=== PATIENT | male | born 1950 | race Caucasian/White ===

== ENCOUNTER 2016-11-18 15:46 | Emergency (ER) | payer OTHER ==
[~2016-11-18] VITALS: Ht 188 cm; Wt 106.6 kg
[~2016-11-18 15:46] MED LIST: HYDR-971 PO; WARF10TA6 PO
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
--- NOTE | 2016-11-18 16:42 | EKG ---
[facility] [address] [place] [address] Test Date: 2016-11-18 Test Time: 16:38:31 Pat Name: XOCHITL GRIFFITH Department: Room: Gender: M Program Management Specialist: : 1950 Requested By: NEERU MON Order Number: [id number] Reading MD: Mae Mcmullen Measurements Intervals [place] Rate: 99 P: 31 IL: 146 QRS: -38 QRSD: 130 T: 16 QT: 386 QTc: 495 Interpretive Statements SINUS RHYTHM LEFT ANTERIOR FASCICULAR BLOCK RIGHT BUNDLE BRANCH BLOCK BIFASCICULAR BLOCK RVH WITH REPOLARIZATION ABNORMALITY Electronically Signed On 11-20-2016 12:51:42 CDT by Mae Mcmullen
[2016-11-18] MEDS ORDERED: IOHEXOL 300 MG/ML 75 ML VIAL IV ONE (16:45)
[2016-11-18] MEDS ORDERED: CONTRAST GIVEN MC PRN (17:00)
[2016-11-18 18:16] LABS: BASO % 1 % (0-3); EOS % 3 % (0-3); HEMATOCRIT 41.8 % (39.0-53.0); HEMOGLOBIN 14.6 g/dL (13.0-17.5); LYMPH % 29 % (24-48); MEAN CORPUSCULAR HEMOGLOBIN 32 pg (25-35); MEAN CORPUSCULAR HGB CONC 35 g/dL (31-37); MEAN CORPUSCULAR VOLUME 90 fL (79-100); MONO % 10 % (0-9); NEUT % 59 % (31-73); PLATELET COUNT 227 x10^3/uL (140-400); RED BLOOD COUNT 4.62 x10^6/uL (4.30-5.70); RED CELL DISTRIBUTION WIDTH 13.5 % (11.5-14.5); WHITE BLOOD COUNT 6.8 x10^3/uL (4.0-11.0)
[2016-11-18 18:37] LABS: CALCIUM 9.6 mg/dL (8.5-10.1); CREATININE 0.7 mg/dL (0.7-1.3); GFR 112.8; POTASSIUM 3.9 mmol/L (3.5-5.1)
[2016-11-18 18:44] LABS: DIRECT BILIRUBIN 0.1 mg/dL (0.0-0.2); TOTAL BILIRUBIN 0.3 mg/dL (0.2-1.0); TOTAL PROTEIN 7.3 g/dL (6.4-8.2)
[2016-11-18 18:59] LABS: CKMB MASS 2.7 ng/mL (0.0-3.6)
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
[2016-11-18 19:43] VITALS: BP 136/76
== END 2016-11-18 20:18 | disposition home or self-care (01) ==
LOC: ER 15:46
DX: R07.2 Precordial pain (principal); R00.0 Tachycardia, unspecified; Z86.718 Personal history of other venous thrombosis and embolism; Z79.01 Long term (current) use of anticoagulants; V43.52XA Car driver injured in collision with other type car in traffic accident, initial encounter; Y93.I9 Activity, other involving external motion; Y92.410 Unspecified street and highway as the place of occurrence of the external cause; Y99.8 Other external cause status
CPT/HCPCS: 36415; 71260; 74177; 80048; 80076; 82553; 83690; 84484; 85025; 93005; 99285; Q9967

== ENCOUNTER 2017-04-03 11:45 | Emergency (ER) | payer OTHER ==
[2017-04-03] MEDS: IPRATRPIUM/ALBUTEROL 0.5/2.5MG 3 ML NEBU. NEB ×2 (13:13→13:58)
[2017-04-03 13:36] LABS: ADD MAN DIFF? NO
[2017-04-03 13:40] LABS: BASO % 1 % (0-3); EOS # 0.3 x10^3/uL (0.0-0.7); EOS % 5 % (0-3); HEMATOCRIT 45.8 % (39.0-53.0); HEMOGLOBIN 15.4 g/dL (13.0-17.5); LYMPH # 1.9 x10^3/uL (1.0-4.8); LYMPH % 26 % (24-48); MEAN CORPUSCULAR HEMOGLOBIN 31 pg (25-35); MEAN CORPUSCULAR HGB CONC 34 g/dL (31-37); MEAN CORPUSCULAR VOLUME 92 fL (79-100); MONO # 0.8 x10^3/uL (0.0-1.1); MONO % 11 % (0-9); NEUT # 4.1 x10^3uL (1.8-7.7); NEUT % 58 % (31-73); PLATELET COUNT 226 x10^3/uL (140-400); RED BLOOD COUNT 4.99 x10^6/uL (4.30-5.70); RED CELL DISTRIBUTION WIDTH 13.6 % (11.5-14.5); WHITE BLOOD COUNT 7.2 x10^3/uL (4.0-11.0)
[2017-04-03 13:50] LABS: ANION GAP 11 (6-14); BLOOD UREA NITROGEN 16 mg/dL (8-26); CALCIUM 9.2 mg/dL (8.5-10.1); CARBON DIOXIDE 28 mmol/L (21-32); CHLORIDE 103 mmol/L (98-107); CREATININE 0.7 mg/dL (0.7-1.3); GFR 112.8; GLUCOSE 99 mg/dL (70-99); POTASSIUM 3.9 mmol/L (3.5-5.1); SODIUM 142 mmol/L (136-145)
[2017-04-03 13:56] LABS: ALBUMIN 3.9 g/dL (3.4-5.0); ALK PHOS 53 U/L (46-116); ALT (SGPT) 91 U/L (16-63); AST (SGOT) 47 U/L (15-37); DIRECT BILIRUBIN 0.2 mg/dL (0.0-0.2); LIPASE 63 U/L (73-393); MAGNESIUM 1.7 mg/dL (1.8-2.4); TOTAL BILIRUBIN 0.6 mg/dL (0.2-1.0); TOTAL PROTEIN 7.5 g/dL (6.4-8.2)
[2017-04-03 13:59] LABS: TROPONINI < 0.017 ng/mL (0.000-0.055)
[2017-04-03 14:05] LABS: CKMB INDEX 1.9 % (0-4); CKMB MASS 4.3 ng/mL (0.0-3.6); CREATINE KINASE 228 U/L (39-308)
[2017-04-03 14:05] LABS: NT-PRO BNP 10 pg/mL (0-124)
[2017-04-03 14:13] LABS: D-DIMER < 0.27 ug/mlFEU (0.00-0.50)
[2017-04-03] MEDS: AZITHRMYCN 500MG IVPB FOR OMNI 250 ML IV (14:19)
[2017-04-03] MEDS: methylPREDNISolone SOD SUCC PF 125 MG/2 ML VIAL. IV (14:19)
== END 2017-04-03 15:20 | disposition home or self-care (01) ==
LOC: ER 15:20
DX: J40 Bronchitis, not specified as acute or chronic (principal); Z86.718 Personal history of other venous thrombosis and embolism; Z86.711 Personal history of pulmonary embolism; Z95.828 Presence of other vascular implants and grafts; Z79.01 Long term (current) use of anticoagulants
CPT/HCPCS: 36415; 71046; 80048; 80076; 82553; 83690; 83735; 83880; 84484; 85025; 85379; 93005; 94640; 96365; 96375; 99285-25; J0456; J2930; J7620

== ENCOUNTER → 2018-07-03 | Outpatient (CLI) | payer OTHER, MEDICARE ==
[2017-04-03 12:35] VITALS: BP 154/84
[~2018-07-03] MED LIST changes: +ALBU2.5V8 INH; +AZIT250T6 PO; +HYDR-3164 PO; -HYDR-971 PO; +PRED50TA PO; +WARF10TA40 PO; -WARF10TA6 PO
--- NOTE | 2018-07-04 09:09 | KCIC ---
Maxillofacial CT scan without comparison for recurrent maxillary sinusitis, sinus infections, drainage, congestion, cough. TECHNIQUE: Contiguous helical 2 mm axial images are obtained through the maxilla facial bones. Sagittal and coronal reformations are evaluated. FINDINGS: There is a minimal mucosal thickening within the bilateral maxillary, frontal, and sphenoid sinuses, with moderate mucosal thickening throughout the ethmoid air cells. No air-fluid levels are identified to suggest acute sinusitis. No bony changes are seen. There is a letha bullosa on the right. The ostiomeatal complexes bilaterally are obstructed by mucosal thickening at the infundibula. At the right maxillary sinus, there is a small patent medial wall defect seen best on the coronal series image 23, which may reflect a small antrostomy defect. No such findings on the left. There is mild nasal septal deviation to the left. No significant soft tissue abnormalities. IMPRESSION: 1. Mild to moderate multifocal mucosal thickening, with no air-fluid levels to suggest acute sinusitis. 2. Obstructed ostiomeatal complexes bilaterally by mucosal thickening at the infundibula. 3. Patent right maxillary medial wall defect, likely a small antrostomy. Electronically signed by: Roberto Kelley MD (07/04/2018 9:07 AM) [facility]
== END | disposition home or self-care (01) ==
LOC: KCIC CT 14:58
PROVIDERS: ATTEND Family Medicine
DX: J34.89 Other specified disorders of nose and nasal sinuses (principal); J34.2 Deviated nasal septum
CPT/HCPCS: 70486

== ENCOUNTER 2019-01-28 04:29 | Emergency (ER) | payer OTHER ==
[~2019-01-28] VITALS: Ht 188 cm; Wt 108.4 kg
[2019-01-28 04:59] VITALS: BP 131/75
--- NOTE | 2019-01-28 05:59 | PHYS DOC ---
Past Medical History Past Medical History: DVT, Other Additional Past Medical Histor: PE Past Surgical History: Tonsillectomy, Other Additional Past Surgical Histo: VENOUS CATHETER PLACED Alcohol Use: None Drug Use: None Adult General Chief Complaint Chief Complaint: SHOULDER INJURY HPI HPI Patient is a 68 year old male who presents with left shoulder and elbow pain 10 days. Patient states he's been evaluated at emergency department and by his PCP for the shoulder pain. He states he had labs and x-rays taken at and has subsequently followed up with PCP who injected his shoulder with steroids and provided him a prescription of hydrocodone. Patient states that his shoulder and elbow continued to hurt despite medications. Pain is worse with palpation and range of motion. No chest pain shortness breath, nausea vomiting. No other acute symptoms or complaints. [] Review of Systems Review of Systems Review symptoms as per history of present illness. All other systems were reviewed and found to be within normal limits, except as documented in this note. Allergies Allergies Allergies Coded Allergies Type Severity Reaction Last Updated Verified No Known Drug Allergies 08/05/13 No Physical Exam Physical Exam Constitutional: Well developed, well nourished, anxious, moderate discomfort secondary pain. [] HENT: Normocephalic, atraumatic, bilateral external ears normal, oropharynx moist, no oral exudates, nose normal. [] Eyes: PERRLA, EOMI, conjunctiva normal, no discharge. [] Neck: Normal range of motion, no tenderness, supple, no stridor. [] Cardiovascular:Heart rate regular rhythm, no murmur [] Lungs & Thorax: Bilateral breath sounds clear to auscultation []] Extremities: L Shoulder, no warmth edema or swelling appreciated. Tenderness to palpation with pain on range of motion. Left elbow, no soft tissue swelling and warmth or edema. Pain with range of motion.[] Neurologic: Alert and oriented X 3, normal motor function, normal sensory function, no focal deficits noted. [] Psychologic: Affect normal, judgement normal, mood normal. [] Current Patient Data Vital Signs Vital Signs Date Time Temp Pulse Resp B/P (MAP) Pulse Ox O2 Delivery O2 Flow Rate FiO2 01/28/19 04:59 97.5 71 18 131/75 (93) 94 Room Air 97.5 EKG EKG [] Radiology/Procedures Radiology/Procedures [] Course & Med Decision Making Course & Med Decision Making Pertinent Labs and Imaging studies reviewed. (See chart for details) [Musculoskeletal pain currently being evaluated by his PCP. Recommendations are to continue home pain medications and to take an additional dose of hydrocodone upon returning home and to contact his PCP later this morning. No emergent workup indicated at this time.] Dragon Disclaimer Dragon Disclaimer This electronic medical record was generated, in whole or in part, using a voice recognition dictation system. Departure Departure Impression: Primary Impression: Shoulder pain, left Disposition: 01 HOME, SELF-CARE Condition: STABLE Patient Instructions: Shoulder Pain, [id number] Additional Instructions: Continue home pain medication and follow-up with your PCP later today. JESSENIA ZAVALETA DO Jan 28, 2019 05:59
== END 2019-01-28 05:13 | disposition home or self-care (01) ==
LOC: ER 04:29
DX: M25.512 Pain in left shoulder (principal); M25.522 Pain in left elbow; Z90.89 Acquired absence of other organs; Z86.718 Personal history of other venous thrombosis and embolism; Z86.711 Personal history of pulmonary embolism
CPT/HCPCS: 99281

== ENCOUNTER → 2019-02-06 | Outpatient (CLI) | payer OTHER ==
[2019-01-28 04:59] VITALS: BP 131/75
--- NOTE | 2019-02-06 12:25 | KCIC ---
2 radiographs of the orbits for history of ocular foreign body, screening for MRI. FINDINGS: No radiopaque metallic foreign body is present in the orbits or facial bones, save for dental amalgam. No incidentally noted osseous anomalies. IMPRESSION: 1. No discernible metallic ocular foreign bodies. Electronically signed by: Roberto Kelley MD (02/06/2019 12:23 PM) [id number]
--- NOTE | 2019-02-06 12:38 | KCIC ---
MR of the left shoulder HISTORY: Left shoulder pain, limited range of motion. No known injury. TECHNIQUE: Routine multiple planar sequences are obtained. FINDINGS: Moderate motion degradation. Acromioclavicular joint is mildly degenerative. Rotator cuff tendinosis with thickening and signal. Small fluid signal defect at the infraspinatus tendon critical zone, best seen on coronal series 7, image 9, compatible with shallow small linear articular side tear. No large, full-thickness or retracted rotator cuff tear is otherwise identified at the supraspinatus or infraspinatus tendon. Subscapularis tendon is thick and heterogeneous compatible with at least tendinosis and possibly mild partial tearing. No significant subdeltoid bursal fluid. No significant glenohumeral joint effusion. Severe glenohumeral joint DJD with severe cartilage loss, osteophytes and subchondral cysts. Limited labral exam due to the motion degradation. Degenerative tear of the posterosuperior labrum, with a posterior para labral cyst which dissects medially through the inferior spinoglenoid notch. Cyst measures about 2.5 x 0.8 x 2.1 cm. Appears to be at least degenerative signal within the remaining labrum. Biceps tendon appears to be grossly intact. No acute fracture. No aggressive bone destruction. No acute soft tissue abnormality. IMPRESSION: 1. Motion degradation. 2. Severe glenohumeral joint DJD. 3. Posterosuperior labral degenerative tear with posterior spinoglenoid notch cyst. At least degeneration through the remaining labrum. 4. Rotator cuff tendinosis. Small linear tear at the articular surface of the infraspinatus tendon compatible with a superficial tear. Probable partial subscapularis tendon tear. No full-thickness or retracted rotator cuff rupture. Electronically signed by: Harrison Irizarry MD (02/06/2019 12:35 PM) [facility]
== END | disposition home or self-care (01) ==
LOC: KCIC MRI 08:19
PROVIDERS: ATTEND Family Medicine
DX: S46.812A Strain of other muscles, fascia and tendons at shoulder and upper arm level, left arm, initial encounter (principal); M19.012 Primary osteoarthritis, left shoulder; M25.712 Osteophyte, left shoulder; M25.812 Other specified joint disorders, left shoulder; M75.102 Unspecified rotator cuff tear or rupture of left shoulder, not specified as traumatic; X58.XXXA Exposure to other specified factors, initial encounter; Y93.89 Activity, other specified; Y92.89 Other specified places as the place of occurrence of the external cause; Y99.8 Other external cause status
CPT/HCPCS: 70030; 73221

== ENCOUNTER → 2019-02-22 | Outpatient (CLI) | payer OTHER ==
[2019-01-28 04:59] VITALS: BP 131/75
--- NOTE | 2019-02-23 09:53 | RAD ---
CT cervical spine without contrast, CT thoracic spine without contrast. HISTORY: Thoracic and neck pain, back pain Cervical spine Axial CT images were obtained through the cervical spine. Sagittal and coronal reconstructed images were reviewed. There is no acute fracture in the cervical spine. Thyroid is homogeneous. There is no adenopathy in the neck. There is no focal disc protrusion. There is mild bulging of the disc at C2-3. There is hypertrophic spurring. There is disc space narrowing at C5-6 and C6-7. There is facet arthritis at C2-3 and C3-4 on the right. There is facet arthritis at C3-4 and C4-5 on the left. There is foraminal stenosis at C4-5 and C5-C6 on the right C3-4 on the left. IMPRESSION: 1. Degenerative changes in the cervical spine with degenerative disc disease and hypertrophic spurring. 2. Degenerative facet arthritis at several levels C above. 3. No acute C-spine fracture. CT thoracic spine Axial CT images were obtained to the thoracic spine. Sagittal and coronal reconstructed images were reviewed. Visualized portions the lungs are free of infiltrates, there is linear scarring or atelectasis in the lower lobes. There is mild scoliosis. There is spurring at C7-T1. There is endplate depression at the superior aspect of T1 which could be chronic or mild increase acute fracture of the superior endplate. No other thoracic fracture is identified. MRI could be of benefit to differentiate acute from chronic changes. There is no bony destructive process in the thoracic spine. There are degenerative change at the junction of the rib and vertebral body on the right side at T9 on the right. A definite focal disc protrusion is not identified. There is no spinal stenosis. There is a lesion in the medial right kidney, CT numbers are not definitive for a cyst, ultrasound of the kidney would be of benefit. There is a vena cava filter. IMPRESSION: 1. Endplate depression at T1 which could be acute or chronic minimal fracture. 2. Mild degenerative changes in the thoracic spine. 3. Complicated cyst versus low-density mass right kidney ultrasound be of benefit. PQRS Compliance Statement: One or more of the following individualized dose reduction techniques were utilized for this examination: 1. Automated exposure control 2. Adjustment of the mA and/or kV according to patient size 3. Use of iterative reconstruction technique Electronically signed by: Edwar Wellington MD (02/23/2019 9:49 AM) [facility]
== END | disposition home or self-care (01) ==
LOC: CT 14:34
PROVIDERS: ATTEND Family Medicine
DX: M50.31 Other cervical disc degeneration, high cervical region (principal); M48.02 Spinal stenosis, cervical region; M47.813 Spondylosis without myelopathy or radiculopathy, cervicothoracic region; M41.84 Other forms of scoliosis, thoracic region
CPT/HCPCS: 72125; 72128

== ENCOUNTER → 2019-03-01 | Outpatient (CLI) | payer OTHER ==
--- NOTE | 2019-03-01 11:52 | KCIC ---
MRI Cervical Spine Without Contrast History: Neck pain, left radiculitis, severe left upper extremity pain Technique: Multiplanar, multi sequential noncontrast MR imaging was performed of the cervical spine. Comparison: CT cervical spine exam February 22, 2019 Findings: There is some motion degradation. Cervical cord caliber is within normal limits without defined or expansile signal abnormality. There is again moderate to severe degenerative disc disease greater anteriorly at [id number], to a somewhat lesser degree at C7-T1. Vertebral body stature is overall maintained. There is very mild grade 1 anterior spondylolisthesis C3-4. There is degenerative endplate change greater anteriorly C5-C6 to C7-T1. There is trace edema of the anterior C6-7 corners likely reactive/degenerative in etiology. C2-C3: There is severe right facet degenerative change, to lesser degree on the left. There is right uncovertebral degenerative change. There is moderate to severe narrowing of the right neural foramen, left neural foramen overall adequate. There is buckling of the ligamentum flavum. Central canal is borderline about 10 mm. C3-C4: There is severe left facet hypertrophic change, to lesser degree on the right. There is buckling of the ligamentum flavum. Central canal is minimally narrowed to 9 to 10 mm. There is severe narrowing of the left neural foramen, minimal narrowing on the right. C4-C5: There is minimal posterior protrusion which is partially calcified as seen on CT. Central canal is adequate about 12 mm. There is severe facet degenerative change greater on the left. There is also uncovertebral degenerative change. There is severe neural foramina compromise bilaterally. C5-C6: Spinal canal is adequate. There is facet degenerative change, also right uncovertebral degenerative change. Left neural foramen is adequate, moderate narrowing of the right neural foramen. C6-C7: Spinal canal and the neural foramina are adequate. There is negligible disc osteophyte complex. There is facet degenerative change. There is mild left uncovertebral degenerative change. C7-T1: Spinal canal and neural foramina are adequate. There is facet degenerative change greater on the left. Impression: 1. There is mild spinal stenosis C3-4. 2. Facet and uncovertebral degenerative change contributes to multilevel neural foramina compromise as stated, more significant narrowing on the right at C2-3, on the left at C3-4, and bilaterally at C4-5, a lesser degree of narrowing on the right at C5-C6. 3. There is multilevel degenerative disc disease greatest C5-C6 to C7-T1, mild spondylosis. Electronically signed by: Fuad Nguyen MD (03/01/2019 11:49 AM) [facility]
== END | disposition home or self-care (01) ==
LOC: KCIC MRI 09:14
PROVIDERS: ATTEND Physical Medicine & Rehabilitation
DX: M50.13 Cervical disc disorder with radiculopathy, cervicothoracic region (principal); M47.23 Other spondylosis with radiculopathy, cervicothoracic region; M48.02 Spinal stenosis, cervical region
CPT/HCPCS: 72141

== ENCOUNTER 2019-08-25 18:09 | Emergency (ER) | payer OTHER ==
[~2019-08-25] VITALS: Ht 188 cm; Wt 106.8 kg
[2019-08-25] MEDS ORDERED: VANCOMYCIN PER PHARMACY MC ONE (18:45)
--- NOTE | 2019-08-25 18:50 | PHYS DOC ---
Past Medical History Past Medical History: DVT, Other Additional Past Medical Histor: PE Past Surgical History: Tonsillectomy, Other Additional Past Surgical Histo: VENOUS CATHETER PLACED Smoking Status: Former Smoker Alcohol Use: None Drug Use: None General Adult EDM: Chief Complaint: LOWER EXTREMITY SWELLING HPI: HPI: Patient is a 69 year old male who presents with complaint of left lower leg pain and swelling that started about a week ago. Patient indicates that he has a history of DVT in that leg and takes Xarelto. He states that he is also noticed increasing redness in the leg over the last week or 2. Patient rates pain at about a 7 out of 10 when he is up and walking on it. He states it is currently about a 5 out of 10 right now. He denies any fever. He denies any nausea or vomiting. Patient states that the pain is worsened with weightbearing. He denies any chest pain or shortness of breath. [] Review of Systems: Review of Systems: Constitutional: Denies fever or chills. [] Respiratory: Denies cough or shortness of breath. [] Cardiovascular: Denies chest pain or edema. [] Musculoskeletal: Complains of left lower leg swelling and pain. [] Integument: Denies rash. [] Neurologic: Denies headache, focal weakness or sensory changes. [] A complete 10 point review of systems has been reviewed and is otherwise negative. Heart Score: Risk Factors: Risk Factors: DM, Current or recent (<one month) smoker, HTN, HLP, family history of CAD, obesity. Risk Scores: Score 0 - 3: 2.5% MACE over next 6 weeks - Discharge Home Score 4 - 6: 20.3% MACE over next 6 weeks - Admit for Clinical Observation Score 7 - 10: 72.7% MACE over next 6 weeks - Early Invasive Strategies Current Medications: Current Medications Medications (Trade) Dose Ordered Sig/Jasmyne Start Time Stop Time Status Last Admin Dose Admin Vancomycin HCl (Vanco Per Pharmacy) 1 each 1X ONCE 08/25/19 18:45 08/25/19 18:46 UNV Allergies: Allergies: Allergies Coded Allergies Type Severity Reaction Last Updated Verified No Known Drug Allergies 08/05/13 No Physical Exam: PE: Constitutional: Well developed, well nourished, no acute distress, non-toxic appearance. [] HENT: Normocephalic, atraumatic, bilateral external ears normal, oropharynx moist, no oral exudates, nose normal. [] Eyes: PERRLA, EOMI, conjunctiva normal, no discharge. [] Neck: Normal range of motion, no tenderness, supple, no stridor. [] Cardiovascular: Regular rate and rhythm [] Lungs & Thorax: Bilateral breath sounds clear to auscultation [] Abdomen: Bowel sounds normal, soft, no tenderness. [] Skin: Warm, dry, no erythema, no rash. [] Extremities: No cyanosis, no clubbing, ROM intact, with edema and erythema in the left lower leg. [] Neurologic: Alert and oriented X 3, no focal deficits noted. [] EKG: EKG: [] Radiology/Procedures: Radiology/Procedures: [] Course & Med Decision Making: Course & Med Decision Making Pertinent Labs and Imaging studies reviewed. (See chart for details) [] Dragon Disclaimer: Dragon Disclaimer: This electronic medical record was generated, in whole or in part, using a voice recognition dictation system. Departure Departure Impression: Primary Impression: Cellulitis Qualified Codes: L03.116 - Cellulitis of left lower limb Additional Impression: Non-occlusive thrombus Disposition: HOME, SELF-CARE Condition: STABLE Referrals: MYRON GUO MD (PCP) Patient Instructions: Cellulitis Scripts Hydrocodone/Apap 5-325 (NORCO 5-325 TABLET) 1 Each Tablet 1-2 EACH PO PRN Q6HRS PRN for PAIN, #15 as needed for pain Prov: CATHY SERRANO Jr. DO 08/25/19 Clindamycin Hcl (CLINDAMYCIN HCL) 300 Mg Capsule 1 CAP PO QID, #40 CAP Prov: CATHY SERRANO Jr. DO 08/25/19 Justicifation of Admission Dx: Justifications for Admission: Justification of Admission Dx: Comment: (Not applicable) CATHY SERRANO Jr. DO Aug 25, 2019 18:50
[2019-08-25 19:43] LABS: BASO % 0 % (0-3); EOS # 0.1 x10^3/uL (0.0-0.7); EOS % 1 % (0-3); HEMATOCRIT 38.9 % (39.0-53.0); HEMOGLOBIN 13.7 g/dL (13.0-17.5); LYMPH # 1.6 x10^3/uL (1.0-4.8); LYMPH % 25 % (24-48); MEAN CORPUSCULAR HEMOGLOBIN 33 pg (25-35); MEAN CORPUSCULAR HGB CONC 35 g/dL (31-37); MEAN CORPUSCULAR VOLUME 93 fL (79-100); MONO # 0.7 x10^3/uL (0.0-1.1); MONO % 12 % (0-9); NEUT # 3.9 x10^3/uL (1.8-7.7); NEUT % 62 % (31-73); PLATELET COUNT 304 x10^3/uL (140-400); RED BLOOD COUNT 4.17 x10^6/uL (4.30-5.70); RED CELL DISTRIBUTION WIDTH 13.3 % (11.5-14.5); WHITE BLOOD COUNT 6.3 x10^3/uL (4.0-11.0)
[2019-08-25 19:49] LABS: CALCIUM 8.8 mg/dL (8.5-10.1); CREATININE 0.9 mg/dL (0.7-1.3); GFR 83.7; POTASSIUM 3.6 mmol/L (3.5-5.1)
[2019-08-25 19:55] LABS: ALBUMIN 3.4 g/dL (3.4-5.0); ALBUMIN/GLOBULIN RATIO 1.1 (1.0-1.7); C-REACTIVE PROTEIN 5.5 mg/L (0-3.3); TOTAL BILIRUBIN 0.3 mg/dL (0.2-1.0); TOTAL PROTEIN 6.6 g/dL (6.4-8.2)
[2019-08-25] MEDS ORDERED: VANCOMYCIN 2 GM in IV NORMAL SALINE 500ML BAG 500 ML IV ONE (20:00)
--- NOTE | 2019-08-25 20:22 | RAD ---
Exam: Left lower extremity venous duplex study INDICATION: Leg swelling TECHNIQUE: Using a combination of real-time ultrasound imaging and color-flow and pulse Doppler imaging techniques along with graded compression and augmentation, duplex evaluation of the deep venous systems of leftlower extremity was performed. Multiple images were obtained. Findings: Nonocclusive thrombus in the left popliteal vein extending into the posterior tibial vein Otherwise, There is no sonographic evidence for deep venous thrombosis involving the visualized deep venous structures of the left lower extremity. IMPRESSION: Nonocclusive thrombus in the left popliteal vein extending into the posterior tibial vein. Electronically signed by: Ranulfo Crowder MD (08/25/2019 8:19 PM) [id number]
[2019-08-25] MEDS ORDERED: oxyCODONE/APAP 7.5/325 1 TAB TABLET PO ONE (20:30)
[2019-08-25] MEDS ORDERED: HYDR-3164 PO (20:34)
[2019-08-25] MEDS ORDERED: CLIN300C8 PO (20:34)
[2019-08-25 22:26] VITALS: BP 136/77
[2019-08-25 22:57] LABS: BILIRUBIN,URINE NEGATIVE (NEG); CLARITY,URINE CLEAR; COLOR,URINE YELLOW; NITRITE,URINE NEGATIVE (NEG); PROTEIN,URINE NEGATIVE (NEG-TRACE); UROBILINOGEN,URINE 0.2 mg/dL (0.2 mg/dL)
[2019-08-25 23:02] LABS: SQUAMOUS EPITHELIAL CELL,UR OCC /LPF
[2019-08-25 23:03] LABS: BACTERIA,URINE 0 /HPF (0-FEW); RBC,URINE 0 /HPF (0-2); WBC,URINE 0 /HPF (0-4)
[2019-08-25 23:04] LABS: HYALINE CASTS, URINE OCCASIONAL /HPF
[2019-08-26] MEDS ORDERED: VANCOMYCIN 1.5 GM in IV NORMAL SALINE 500ML BAG 500 ML IV SCH (08:00)
== END 2019-08-25 22:50 | disposition home or self-care (01) ==
LOC: ER 18:09
DX: L03.116 Cellulitis of left lower limb (principal); I82.432 Acute embolism and thrombosis of left popliteal vein; Z87.891 Personal history of nicotine dependence; Z86.718 Personal history of other venous thrombosis and embolism; Z86.711 Personal history of pulmonary embolism
CPT/HCPCS: 36415; 80053; 81001; 85025; 86140; 87040; 93971; 96365; 96366; 99285; J3370; J7040

== ENCOUNTER 2019-09-14 14:08 | Inpatient (IN) | payer OTHER, MEDICARE ==
[~2019-09-14] VITALS: Ht 188 cm; Wt 109.0 kg
[~2019-09-14 14:08] MED LIST changes: +CLIN300C8 PO
[2019-09-14] MEDS ORDERED: CLINDAMYCIN 600MG PREMIX 50 ML IV ONE (16:00)
--- NOTE | 2019-09-14 16:29 | PHYS DOC ---
Past Medical History Past Medical History: DVT, Other Additional Past Medical Histor: PE Past Surgical History: Tonsillectomy, Other Additional Past Surgical Histo: VENOUS CATHETER PLACED Smoking Status: Former Smoker Alcohol Use: Rarely Drug Use: None General Adult EDM: Chief Complaint: CELLULITIS HPI: HPI: Patient is a 69 year old male who presents with cellulitis to the left lower leg. He has had this for the last month. He has been on 2 antibiotic treatments at home without any relief. He continues to have severe pain and has been taking oxycodone to help with his pain. He denies any fevers. He states the area continues to spread. Review of Systems: Review of Systems: General: Denies fever, chills, sweats, fatigue Eyes: Denies drainage, blurred vision, eye redness HENT: Denies rhinorrhea, sore throat, earache Respiratory: Denies cough, shortness of breath, wheezing Cardiac: Denies edema, palpitations, chest pain GI: Denies abdominal pain, Nausea, vomiting MSK: Denies back pain, neck pain Skin: Denies jaundice reports rash Neuro: Denies headache, dizziness Psychiatric: Denies SI/HI Heart Score: Risk Factors: Risk Factors: DM, Current or recent (<one month) smoker, HTN, HLP, family history of CAD, obesity. Risk Scores: Score 0 - 3: 2.5% MACE over next 6 weeks - Discharge Home Score 4 - 6: 20.3% MACE over next 6 weeks - Admit for Clinical Observation Score 7 - 10: 72.7% MACE over next 6 weeks - Early Invasive Strategies Current Medications: Current Medications Medications (Trade) Dose Ordered Sig/Jasmyne Start Time Stop Time Status Last Admin Dose Admin Clindamycin Phosphate 50 ml @ 100 mls/hr 1X ONCE 09/14/19 16:00 09/14/19 16:29 09/14/19 16:16 100 MLS/HR Allergies: Allergies: Allergies Coded Allergies Type Severity Reaction Last Updated Verified No Known Drug Allergies 08/05/13 No Physical Exam: PE: General: Awake, alert, NAD. Well Nourished, well hydrated. Cooperative HEENT: Atraumatic, EOMI, PERRL, airway patent, moist oral mucosa Neck: Supple, trachea midline Respiratory: CTA bilaterally, normal effort, no wheezing/crackles CV: RRR, no murmur, cap refill <2 GI: Soft, nondistended, nontender, no masses MSK: No obvious deformities Skin: Warm, dry, intact. Left lower leg: Erythema surrounding legs with a few small blisters consistent with cellulitis Neuro: A&O x3, speech NL, sensory and motor grossly intact, no focal deficits Psych: Normal affect, normal mood, not suicidal or homicidal Current Patient Data: Vital Signs: Vital Signs Date Time Temp Pulse Resp B/P (MAP) Pulse Ox O2 Delivery O2 Flow Rate FiO2 09/14/19 14:10 97.9 93 16 130/70 (90) 95 Room Air 97.9 EKG: EKG: [] Radiology/Procedures: Radiology/Procedures: [] Course & Med Decision Making: Course & Med Decision Making Pertinent Labs and Imaging studies reviewed. (See chart for details) Patient is a 69-year-old male who presents to the emergency room complaining of cellulitis to the left lower leg. He has been on 2 different antibiotic regimens. He will likely need admission. He had an ultrasound done of his leg to rule out a DVT when he was here 3 weeks ago which was negative. He does not have any hardware in that leg. He will be started on clindamycin will be admitted. Dragon Disclaimer: Tipping Bucket Disclaimer: This electronic medical record was generated, in whole or in part, using a voice recognition dictation system. Departure Departure Impression: Primary Impression: Cellulitis, leg Disposition: ADMITTED INPATIENT Condition: STABLE Referrals: MYRON GUO MD (PCP) Justicifation of Admission Dx: Justifications for Admission: Justification of Admission Dx: Yes Cellulitis: Cellulitis BILLIE RIOS MD Sep 14, 2019 16:29
[2019-09-14 16:31] LABS: CALCIUM 9.2 mg/dL (8.5-10.1); CREATININE 0.9 mg/dL (0.7-1.3); GFR 83.7; POTASSIUM 4.5 mmol/L (3.5-5.1)
[2019-09-14 16:37] LABS: ALBUMIN 3.6 g/dL (3.4-5.0); ALBUMIN/GLOBULIN RATIO 1.1 (1.0-1.7); C-REACTIVE PROTEIN 4.9 mg/L (0-3.3); TOTAL BILIRUBIN 0.3 mg/dL (0.2-1.0); TOTAL PROTEIN 6.9 g/dL (6.4-8.2)
[2019-09-14] MEDS ORDERED: HYDROcodone/APAP 5/325MG 1 TAB TABLET PO PRN (18:00)
[2019-09-14 19:10] VITALS: BP 124/64
--- NOTE | 2019-09-14 19:10 | HP ---
ADMIT DATE: 09/14/2019 CHIEF COMPLAINT: Right lower extremity cellulitis and pain. HISTORY OF PRESENT ILLNESS: The patient is a pleasant 69-year-old male who has history of a DVT and peripheral vascular disease. He was a previous smoker. He has been having problems with chronic left lower extremity cellulitis. He has been on antibiotics for a couple of months, but the pain seems to be getting worse. The erythema is worse. He rates it at 9/10. I discussed the case with ER physician. We are going to admit the patient, put him on IV antibiotics. PAST MEDICAL HISTORY: PE, DVT, peripheral vascular disease, tonsillectomy, previous tobacco abuse. ALLERGIES: None. FAMILY HISTORY: Diabetes. SOCIAL HISTORY: Does not drink or take drugs. Used to smoke, he quit. MEDICATIONS: Reviewed, please refer to the MRAD. REVIEW OF SYSTEMS: GENERAL: No history of weight change, weakness or fevers. SKIN: No bruising, hair changes or rashes. EYES: No blurred, double or loss of vision. NOSE AND THROAT: No history of nosebleeds, hoarseness or sore throat. HEART: No history of palpitations, chest pain or shortness of breath on exertion. LUNGS: Denies cough, hemoptysis, wheezing or shortness of breath. GASTROINTESTINAL: Denies changes in appetite, nausea, vomiting, diarrhea or constipation. GENITOURINARY: No history of frequency, urgency, hesitancy or nocturia. NEUROLOGIC: Denies history of numbness, tingling, tremor or weakness. PSYCHIATRIC: No history of panic, anxiety or depression. ENDOCRINE: No history of heat or cold intolerance, polyuria or polydipsia. EXTREMITIES: He complains of left leg pain. PHYSICAL EXAMINATION: EXTREMITIES: The left leg is quite swollen and painful somewhat contracted erythematous the swelling. onset, but somewhat erythematous and contracted and painful to touch that. PHYSICAL EXAMINATION: VITALS: Within normal limits and are stable. GENERAL: No apparent distress. Alert and oriented. HEENT: Normal cephalic atraumatic, external auditory canals are patent EYES: Extraocular muscles are intact, pupils are equally round and reactive to light and accommodation MUSCULOSKELETAL: Well developed, well nourished, good range of motion ENDOCRINE: No thyromegaly was palpated LYMPHATICS: No cervical chain or axillary nodes were noted HEMATOPOIETIC: No bruising NECK: Supple, no JVD, no thyromegaly was noted. LUNGS: Clear to auscultation in all lung silva without rhonchi or wheezing. HEART: RRR, S1, S2 present. Peripheral pulses intact, no obvious murmurs were noted. ABDOMEN: Soft, nontender. Positive bowel sounds no organomegaly, normal bowel sounds. EXTREMITIES: The left leg is somewhat erythematous, contracted and painful to touch that. NEUROLOGIC: Normal speech, normal tone. A & O x3, moves all extremities, no obvious focal deficits. PSYCHIATRIC: Normal affect, normal mood. Stable. SKIN: No ulcerations or rashes, good skin turgor, no jaundice. VASCULAR: Good capillary refill, neurovascular bundle appears to be intact. LABORATORY DATA: Electrolytes are normal. ASSESSMENT AND PLAN: [id number] cellulitis with intractable pain. The patient will be admitted. We will start IV antibiotics. Home meds, DVT prophylaxis, p.r.n. pain meds. Consult Infectious Disease. Prognosis for that leg is guarded. It looks quite painful. FRANCESCA BORGES DO DR: HAYLEE/neptali JOB#: [id number] / [id number]
[2019-09-14] MEDS: CLINDAMYCIN HCL 150 MG CAPSULE. PO SCH (21:40)
[2019-09-14] MEDS ORDERED: oxyCODONE/APAP 5/325 1 TAB TABLET PO PRN (23:00)
[2019-09-14 23:40] VITALS: BP 105/64
[2019-09-15] MEDS: oxyCODONE/APAP 5/325 1 TAB TABLET PO PRN ×4 (01:14→20:50)
[2019-09-15 03:50] VITALS: BP 123/66
[2019-09-15 07:59] VITALS: BP 132/72
[2019-09-15] MEDS: CLINDAMYCIN HCL 150 MG CAPSULE. PO SCH (08:19)
[2019-09-15] MEDS ORDERED: NON FORMULARY ITEM (Prednisone 1 TAB) PO SCH (09:00)
[2019-09-15 11:59] VITALS: BP 126/63
--- NOTE | 2019-09-15 12:12 | PDOC ---
Infectious Disease Note Vital Sign Vital Signs Vital Signs Date Time Temp Pulse Resp B/P (MAP) Pulse Ox O2 Delivery O2 Flow Rate FiO2 09/15/19 08:18 20 94 Room Air 09/15/19 07:59 97.9 97 132/72 (92) 97.9 Labs Lab Laboratory Tests Test 09/14/19 16:15 Sodium Level 139 mmol/L (136-145) Potassium Level 4.5 mmol/L (3.5-5.1) Chloride Level 103 mmol/L (98-107) Carbon Dioxide Level 30 mmol/L (21-32) Anion Gap 6 (6-14) Blood Urea Nitrogen 14 mg/dL (8-26) Creatinine 0.9 mg/dL (0.7-1.3) Estimated GFR (Cockcroft-Gault) 83.7 BUN/Creatinine Ratio 16 (6-20) Glucose Level 90 mg/dL (70-99) Calcium Level 9.2 mg/dL (8.5-10.1) Total Bilirubin 0.3 mg/dL (0.2-1.0) Aspartate Amino Transf (AST/SGOT) 23 U/L (15-37) Alanine Aminotransferase (ALT/SGPT) 26 U/L (16-63) Alkaline Phosphatase 63 U/L (46-116) C-Reactive Protein, Quantitative 4.9 mg/L (0-3.3) Total Protein 6.9 g/dL (6.4-8.2) Albumin 3.6 g/dL (3.4-5.0) Albumin/Globulin Ratio 1.1 (1.0-1.7) Objective Assessment Cellulitis left lower extremity, failed OP abx Chronic venous stasis Nonocclusive thrombus in the left popliteal vein extending into the posterior tibial vein, on US 08/24. h/o DVT/PE Obesity Plan Plan of Care Change clindamycin to cefazolin add probiotics Leg elevation and monitor CBC Awaiting vascular evaluation D/w Dr. Pruitt D/w nursing Thank you [id number] Patient discussed with CHAIR FRAME BUILDER. Chart reviewed in detail. Above plan co-formulated and agreed upon with CHAIR FRAME BUILDER on 09/15/2019. MARYCRUZ GRIFFITHS APRN Sep 15, 2019 12:12 SUKH PRUITT MD Sep 15, 2019 19:52
[2019-09-15] MEDS ORDERED: RIVA20TA2 PO (12:39)
--- NOTE | 2019-09-15 13:22 | CONS ---
DATE OF CONSULTATION: 09/15/2019 Jcarlos Palacios APRN, dictating for Sukh Cho MD, Infectious Disease. REFERRING PHYSICIAN: Cristine Araujo DO REASON FOR CONSULTATION: Persistent cellulitis. HISTORY OF PRESENT ILLNESS: This patient is a 69-year-old male who has a history of pulmonary emboli and DVT left lower extremity, status post IVC filter about 4-5 years ago. He says since that time, he has developed swelling in his lower extremities bilaterally, off and on, but mostly on the left. About 4 weeks ago, he developed increased pain and redness left leg. He was seen at the ER here on the . A venous Doppler study showed a non-occlusive thrombus in the left popliteal vein extending into the posterior tibial vein. He was released home on clindamycin. He followed up with his primary care provider a couple of days ago and was prescribed azithromycin for persistent symptoms. He took all, but two tablets. He has now been admitted for persistent pain and redness. Today, the patient says the redness is a little bit calmer but that his leg is still hurting. He denies fevers, chills, sweats or body aches. Denies nausea, vomiting or diarrhea. Denies cough, shortness of air or chest discomfort. PAST MEDICAL HISTORY: PE/DVT. PAST SURGICAL HISTORY: Tonsillectomy, IVC filter. SOCIAL HISTORY: The patient lives at home. He quit smoking about 25 years ago. FAMILY HISTORY: Diabetes. ALLERGIES: No known drug allergies. MEDICATIONS: Reviewed on the MAY and includes clindamycin. REVIEW OF SYSTEMS: Per HPI, otherwise all other review of systems are negative. PHYSICAL EXAMINATION: VITAL SIGNS: Temperature is 97.9, blood pressure 132/72, heart rate 97, respiratory rate 20, pulse oximetry 94% on room air. BMI 30.9. GENERAL: The patient is propped up in bed, alert, in no apparent distress. HEENT: Pupils equally round, reactive. Normal conjunctivae. Oropharynx pink and moist. No lesions seen. NECK: Supple. LUNGS: Clear to auscultation No accessory muscle use. HEART: S1, S2. ABDOMEN: Obese, soft, nontender with bowel sounds present. EXTREMITIES: No gross edema or cyanosis. Chronic venous changes, left lower extremity with mild erythema and warmth present. DP palpable. SKIN: Warm to touch or signs of rash. NEUROLOGIC: Alert and answering questions appropriately. LABORATORY DATA: From 08/25/2019, WBC was 6.3. From 09/13, sodium 139, potassium 4.5, creatinine 0.9, BUN 14, Total bilirubin 0.3, AST 23, ALT 26, albumin 3.6, CRP 4.9. Left lower extremity venous ultrasound 08/24 showed non-occlusive thrombus of the left popliteal vein extending into the posterior tibial vein. IMPRESSION: 1. Cellulitis, left lower extremity, failed outpatient antibiotics. 2. Chronic venous stasis. 3. Nonocclusive thrombus and the left popliteal vein extending into the posterior tibial vein at ultrasound 08/25/2019. 4. History of deep venous thrombosis/pulmonary embolism. 5. Obesity. PLAN: Recommend changing clindamycin to cefazolin. Elevate the leg and monitor. Labs have been ordered for the morning. Awaiting vascular evaluation. Thank you, Dr. Araujo, for asking us to participate in this patient's care. Should you have further questions or concerns, please call. SUKH CHO MD DR: TAL/neptali JOB#: [id number] / [id number] JEFERSON
[2019-09-15 13:38] LABS: BASO % 1 % (0-3); EOS # 0.1 x10^3/uL (0.0-0.7); EOS % 3 % (0-3); HEMATOCRIT 42.7 % (39.0-53.0); HEMOGLOBIN 14.7 g/dL (13.0-17.5); LYMPH # 1.4 x10^3/uL (1.0-4.8); LYMPH % 30 % (24-48); MEAN CORPUSCULAR HEMOGLOBIN 32 pg (25-35); MEAN CORPUSCULAR HGB CONC 34 g/dL (31-37); MEAN CORPUSCULAR VOLUME 92 fL (79-100); MONO # 0.5 x10^3/uL (0.0-1.1); MONO % 11 % (0-9); NEUT # 2.5 x10^3/uL (1.8-7.7); NEUT % 55 % (31-73); PLATELET COUNT 243 x10^3/uL (140-400); RED BLOOD COUNT 4.63 x10^6/uL (4.30-5.70); RED CELL DISTRIBUTION WIDTH 13.2 % (11.5-14.5); WHITE BLOOD COUNT 4.7 x10^3/uL (4.0-11.0)
--- NOTE | 2019-09-15 13:46 | PDOC ---
[facility] PROGRESS NOTE Chief Complaint Chief Complaint Persistent and recurrent left lower extremity cellulitis Intractable pain PE, DVT, peripheral vascular disease, tonsillectomy, previous tobacco abuse. History of Present Illness History of Present Illness 09/15/2019 Patient seen and examined The left leg is a little less erythematous today Discussed with ID Discussed with RN Chart reviewed Vitals/I&O Vitals/I&O: Vital Signs Date Time Temp Pulse Resp B/P (MAP) Pulse Ox O2 Delivery O2 Flow Rate FiO2 09/15/19 11:59 97.9 93 18 126/63 (84) 92 Room Air 97.9 I & O 09/14/19 09/14/19 09/15/19 15:00 23:00 07:00 Intake Total 420 ml Balance 420 ml Physical Exam General: Alert, Cooperative Heart: Regular rate Lungs: Clear Abdomen: Normal bowel sounds Extremities: Other (Left leg with erythematous cellulitis please see pictures) Skin: Other (No other rashes) Labs Labs: Laboratory Tests Test 09/14/19 16:15 09/15/19 13:20 Sodium Level 139 mmol/L (136-145) Potassium Level 4.5 mmol/L (3.5-5.1) Chloride Level 103 mmol/L (98-107) Carbon Dioxide Level 30 mmol/L (21-32) Anion Gap 6 (6-14) Blood Urea Nitrogen 14 mg/dL (8-26) Creatinine 0.9 mg/dL (0.7-1.3) Estimated GFR (Cockcroft-Gault) 83.7 BUN/Creatinine Ratio 16 (6-20) Glucose Level 90 mg/dL (70-99) Calcium Level 9.2 mg/dL (8.5-10.1) Total Bilirubin 0.3 mg/dL (0.2-1.0) Aspartate Amino Transf (AST/SGOT) 23 U/L (15-37) Alanine Aminotransferase (ALT/SGPT) 26 U/L (16-63) Alkaline Phosphatase 63 U/L (46-116) C-Reactive Protein, Quantitative 4.9 mg/L (0-3.3) Total Protein 6.9 g/dL (6.4-8.2) Albumin 3.6 g/dL (3.4-5.0) Albumin/Globulin Ratio 1.1 (1.0-1.7) White Blood Count 4.7 x10^3/uL (4.0-11.0) Red Blood Count 4.63 x10^6/uL (4.30-5.70) Hemoglobin 14.7 g/dL (13.0-17.5) Hematocrit 42.7 % (39.0-53.0) Mean Corpuscular Volume 92 fL (79-100) Mean Corpuscular Hemoglobin 32 pg (25-35) Mean Corpuscular Hemoglobin Concent 34 g/dL (31-37) Red Cell Distribution Width 13.2 % (11.5-14.5) Platelet Count 243 x10^3/uL (140-400) Neutrophils (%) (Auto) 55 % (31-73) Lymphocytes (%) (Auto) 30 % (24-48) Monocytes (%) (Auto) 11 % (0-9) Eosinophils (%) (Auto) 3 % (0-3) Basophils (%) (Auto) 1 % (0-3) Neutrophils # (Auto) 2.5 x10^3/uL (1.8-7.7) Lymphocytes # (Auto) 1.4 x10^3/uL (1.0-4.8) Monocytes # (Auto) 0.5 x10^3/uL (0.0-1.1) Eosinophils # (Auto) 0.1 x10^3/uL (0.0-0.7) Basophils # (Auto) 0.0 x10^3/uL (0.0-0.2) Assessment and Plan Assessmemt and Plan Problems Medical Problems: (1) Cellulitis, leg Status: Acute Persistent and recurrent left lower extremity cellulitis Intractable pain PE, DVT, peripheral vascular disease, tonsillectomy, previous tobacco abuse. Plan IV antibiotics Wound care Awaiting vascular surgery consultation Home meds DVT prophylaxis Full code Appreciate subspecialist input Comment Review of Relevant I have reviewed the following items mohsen (where applicable) has been applied. Medications: Current Medications Medications (Trade) Dose Ordered Sig/Jasmyne Route PRN Reason Start Time Stop Time Status Last Admin Dose Admin Clindamycin Phosphate 50 ml @ 100 mls/hr 1X ONCE IV 09/14/19 16:00 09/14/19 16:29 DC 09/14/19 16:16 Acetaminophen/ Hydrocodone Bitart (Lortab 5/325) 1 tab PRN Q6HRS PRN PO PAIN 09/14/19 18:00 09/14/19 22:57 DC 09/14/19 19:37 Clindamycin HCl (Cleocin) 300 mg QID PO 09/14/19 21:00 09/15/19 12:09 DC 09/15/19 08:19 Oxycodone/ Acetaminophen (Percocet 5/325) 2 tab PRN Q4HRS PRN PO SEVERE PAIN 7-10 09/14/19 23:00 09/15/19 08:18 Justicifation of Admission Dx: Justifications for Admission: Justification of Admission Dx: Yes Cellulitis: Cellulitis FRANCESCA BORGES III DO Sep 15, 2019 13:46
[2019-09-15] MEDS: ceFAZolin SODIUM IV Push 1 GM VIAL. IVP SCH ×2 (14:01→22:28)
[2019-09-15 15:59] VITALS: BP 117/66
[2019-09-15 19:00] VITALS: BP 129/70
[2019-09-15] MEDS: LACTOBACILLUS RHAMNOSUS GG 1 CAPSULE. PO SCH (20:49)
[2019-09-15 23:00] VITALS: BP 146/77
[2019-09-16 03:00] VITALS: BP 110/68
[2019-09-16] MEDS: oxyCODONE/APAP 5/325 1 TAB TABLET PO PRN ×2 (05:14→13:43)
[2019-09-16] MEDS: ceFAZolin SODIUM IV Push 1 GM VIAL. IVP SCH ×2 (06:26→13:44)
[2019-09-16 07:15] VITALS: BP 142/76
[2019-09-16] MEDS: LACTOBACILLUS RHAMNOSUS GG 1 CAPSULE. PO SCH (07:59)
--- NOTE | 2019-09-16 09:06 | PDOC ---
PROGRESS NOTES Chief Complaint Chief Complaint A/P: Intractable pain PE, DVT Peripheral vascular disease Previous tobacco abuse Cellulitis, left lower extremity, failed outpatient antibiotics Chronic venous stasis Nonocclusive thrombus and the left popliteal vein extending into the posterior tibial vein at ultrasound 08/25/2019 Obesity History of Present Illness History of Present Illness Mr Quintero is a is a 69 yo M w/ PMHx pulmonary emboli and DVT left lower extremity, status post IVC filter about 4-5 years ago. He developed swelling in his lower extremities bilaterally, off and on, but mostly on the left worse about 4 weeks ago, he developed increased pain and redness left leg, seen in ED 08/25/2019 with venous Doppler study showed a non-occlusive thrombus in the left popliteal vein extending into the posterior tibial vein, sent home on clindamycin and followed up with his primary care provider 2 days prior to admit and was prescribed azithromycin, took 3 days, and returned to ED, admitted for persistent pain and redness failing outpatient treatment. 09/14: The left leg is a little less erythematous today. Discussed with ID. Started on cefazolin. Afebrile. Leg significantly improved. He notes to me that he has been putting hydrocortisone on it at home, thinking that would help with moisturizing. Has palpable pulses, some breakdown between the fourth and fifth toe. Pain is improved. Vitals Vitals Vital Signs Date Time Temp Pulse Resp B/P (MAP) Pulse Ox O2 Delivery O2 Flow Rate FiO2 09/16/19 08:00 Room Air 09/16/19 07:15 97.8 82 16 142/76 (98) 94 97.8 Physical Exam General: Alert, Cooperative Heart: Regular rate Lungs: Clear Abdomen: Normal bowel sounds Extremities: Other (Left leg with erythematous cellulitis please see pictures) Skin: Other (No other rashes) Labs LABS Laboratory Tests Test 09/15/19 13:20 White Blood Count 4.7 x10^3/uL (4.0-11.0) Red Blood Count 4.63 x10^6/uL (4.30-5.70) Hemoglobin 14.7 g/dL (13.0-17.5) Hematocrit 42.7 % (39.0-53.0) Mean Corpuscular Volume 92 fL (79-100) Mean Corpuscular Hemoglobin 32 pg (25-35) Mean Corpuscular Hemoglobin Concent 34 g/dL (31-37) Red Cell Distribution Width 13.2 % (11.5-14.5) Platelet Count 243 x10^3/uL (140-400) Neutrophils (%) (Auto) 55 % (31-73) Lymphocytes (%) (Auto) 30 % (24-48) Monocytes (%) (Auto) 11 % (0-9) Eosinophils (%) (Auto) 3 % (0-3) Basophils (%) (Auto) 1 % (0-3) Neutrophils # (Auto) 2.5 x10^3/uL (1.8-7.7) Lymphocytes # (Auto) 1.4 x10^3/uL (1.0-4.8) Monocytes # (Auto) 0.5 x10^3/uL (0.0-1.1) Eosinophils # (Auto) 0.1 x10^3/uL (0.0-0.7) Basophils # (Auto) 0.0 x10^3/uL (0.0-0.2) Assessment and Plan Assessmemt and Plan Problems Medical Problems: (1) Cellulitis, leg Status: Acute Comment Review of Relevant I have reviewed the following items mohsen (where applicable) has been applied. Labs Laboratory Tests Test 09/14/19 16:15 09/15/19 13:20 Sodium Level 139 mmol/L (136-145) Potassium Level 4.5 mmol/L (3.5-5.1) Chloride Level 103 mmol/L (98-107) Carbon Dioxide Level 30 mmol/L (21-32) Anion Gap 6 (6-14) Blood Urea Nitrogen 14 mg/dL (8-26) Creatinine 0.9 mg/dL (0.7-1.3) Estimated GFR (Cockcroft-Gault) 83.7 BUN/Creatinine Ratio 16 (6-20) Glucose Level 90 mg/dL (70-99) Calcium Level 9.2 mg/dL (8.5-10.1) Total Bilirubin 0.3 mg/dL (0.2-1.0) Aspartate Amino Transf (AST/SGOT) 23 U/L (15-37) Alanine Aminotransferase (ALT/SGPT) 26 U/L (16-63) Alkaline Phosphatase 63 U/L (46-116) C-Reactive Protein, Quantitative 4.9 mg/L (0-3.3) Total Protein 6.9 g/dL (6.4-8.2) Albumin 3.6 g/dL (3.4-5.0) Albumin/Globulin Ratio 1.1 (1.0-1.7) White Blood Count 4.7 x10^3/uL (4.0-11.0) Red Blood Count 4.63 x10^6/uL (4.30-5.70) Hemoglobin 14.7 g/dL (13.0-17.5) Hematocrit 42.7 % (39.0-53.0) Mean Corpuscular Volume 92 fL (79-100) Mean Corpuscular Hemoglobin 32 pg (25-35) Mean Corpuscular Hemoglobin Concent 34 g/dL (31-37) Red Cell Distribution Width 13.2 % (11.5-14.5) Platelet Count 243 x10^3/uL (140-400) Neutrophils (%) (Auto) 55 % (31-73) Lymphocytes (%) (Auto) 30 % (24-48) Monocytes (%) (Auto) 11 % (0-9) Eosinophils (%) (Auto) 3 % (0-3) Basophils (%) (Auto) 1 % (0-3) Neutrophils # (Auto) 2.5 x10^3/uL (1.8-7.7) Lymphocytes # (Auto) 1.4 x10^3/uL (1.0-4.8) Monocytes # (Auto) 0.5 x10^3/uL (0.0-1.1) Eosinophils # (Auto) 0.1 x10^3/uL (0.0-0.7) Basophils # (Auto) 0.0 x10^3/uL (0.0-0.2) Laboratory Tests Test 09/15/19 13:20 White Blood Count 4.7 x10^3/uL (4.0-11.0) Red Blood Count 4.63 x10^6/uL (4.30-5.70) Hemoglobin 14.7 g/dL (13.0-17.5) Hematocrit 42.7 % (39.0-53.0) Mean Corpuscular Volume 92 fL (79-100) Mean Corpuscular Hemoglobin 32 pg (25-35) Mean Corpuscular Hemoglobin Concent 34 g/dL (31-37) Red Cell Distribution Width 13.2 % (11.5-14.5) Platelet Count 243 x10^3/uL (140-400) Neutrophils (%) (Auto) 55 % (31-73) Lymphocytes (%) (Auto) 30 % (24-48) Monocytes (%) (Auto) 11 % (0-9) Eosinophils (%) (Auto) 3 % (0-3) Basophils (%) (Auto) 1 % (0-3) Neutrophils # (Auto) 2.5 x10^3/uL (1.8-7.7) Lymphocytes # (Auto) 1.4 x10^3/uL (1.0-4.8) Monocytes # (Auto) 0.5 x10^3/uL (0.0-1.1) Eosinophils # (Auto) 0.1 x10^3/uL (0.0-0.7) Basophils # (Auto) 0.0 x10^3/uL (0.0-0.2) Medications Current Medications Clindamycin Phosphate 50 ml @ 100 mls/hr 1X ONCE IV Last administered on 09/14/19at 16:16; Start 09/14/19 at 16:00; Stop 09/14/19 at 16:29; Status DC Acetaminophen/ Hydrocodone Bitart (Lortab 5/325) 1 tab PRN Q6HRS PRN PO PAIN Last administered on 09/14/19at 19:37; Start 09/14/19 at 18:00; Stop 09/14/19 at 22:57; Status DC Clindamycin HCl (Cleocin) 300 mg QID PO Last administered on 09/15/19at 08:19; Start 09/14/19 at 21:00; Stop 09/15/19 at 12:09; Status DC Non-Formulary Medication (Prednisone ) 1 tab DAILY PO ; Start 09/15/19 at 09:00; Stop 09/14/19 at 18:01; Status DC Oxycodone/ Acetaminophen (Percocet 5/325) 1 tab PRN Q4HRS PRN PO MODERATE PAIN 4-6; Start 09/14/19 at 23:00 Oxycodone/ Acetaminophen (Percocet 5/325) 2 tab PRN Q4HRS PRN PO SEVERE PAIN 7- 10 Last administered on 09/16/19at 05:14; Start 09/14/19 at 23:00 Cefazolin Sodium (Ancef) 1 gm Q8HRS IVP Last administered on 09/16/19at 06:26; Start 09/15/19 at 14:00 Lactobacillus Rhamnosus (Culturelle) 1 cap BID PO Last administered on 09/16/19at 07:59; Start 09/15/19 at 21:00 Active Scripts Active Busy 5-325 Tablet (Acetaminophen/Hydrocodone Bitart) 1 Each Tablet 1-2 Each PO PRN Q6HRS PRN as needed for pain Clindamycin Hcl 300 Mg Capsule 1 Cap PO QID Azithromycin Tablet (Azithromycin) 250 Mg Tablet 1 Pkg PO UD Prednisone 50 Mg Tablet 1 Tab PO DAILY Proair Hfa Inhaler (Albuterol Sulfate) 8.5 Gm Hfa.aer.ad 1-2 Puff INH PRN Q6HRS PRN Busy 5-325 Tablet (Acetaminophen/Hydrocodone Bitart) 1 Each Tablet 1 Tab PO PRN Q6HRS PRN Reported Xarelto (Rivaroxaban) 20 Mg Tablet 20 Mg PO DAILY Vitals/I & O Vital Sign - Last 24 Hours 09/15/19 09/15/19 09/15/19 09/15/19 09:18 11:59 14:02 15:02 Temp 97.9 97.9 Pulse 93 Resp 18 18 20 18 B/P (MAP) 126/63 (84) Pulse Ox 92 92 92 92 O2 Delivery Room Air Room Air Room Air Room Air 09/15/19 09/15/19 09/15/19 09/15/19 15:59 19:00 20:00 20:50 Temp 97.8 98.3 97.8 98.3 Pulse 93 91 Resp 18 18 B/P (MAP) 117/66 (83) 129/70 (89) Pulse Ox 92 94 92 O2 Delivery Room Air Room Air Room Air Room Air 09/15/19 09/15/19 09/16/19 09/16/19 21:50 23:00 03:00 05:14 Temp 98.3 98.1 98.3 98.1 Pulse 91 89 Resp 18 18 16 B/P (MAP) 146/77 (100) 110/68 (82) Pulse Ox 92 93 94 94 O2 Delivery Room Air Room Air Room Air Room Air 09/16/19 09/16/19 09/16/19 06:14 07:15 08:00 Temp 97.8 97.8 Pulse 82 Resp 16 B/P (MAP) 142/76 (98) Pulse Ox 94 94 O2 Delivery Room Air Room Air Room Air Justicifation of Admission Dx: Justifications for Admission: Justification of Admission Dx: Yes Cellulitis: Cellulitis HAWA LOPES MD Sep 16, 2019 09:06
[2019-09-16 11:00] VITALS: BP 137/55
[2019-09-16] MEDS ORDERED: MINERAL OIL/PETROLATUM TOPICAL CREAM 113GM JAR. TP PRN (12:45)
[2019-09-16] MEDS ORDERED: ALBUTEROL SULFATE 2.5 MG/3 ML NEBU. INH PRN (12:45)
[2019-09-16] MEDS ORDERED: LACT1CAP19 PO (12:56)
[2019-09-16] MEDS ORDERED: AMOX1TAB61 PO (12:56)
[2019-09-16] MEDS ORDERED: AMOXICILLIN/K CLAV 875/125MG TABLET. PO SCH (13:00)
--- NOTE | 2019-09-16 13:16 | PDOC3 ---
Discharge Summary Visit Information Date of Admission: Sep 14, 2019 Date of Discharge: Sep 16, 2019 Admitting Diagnosis: Leg cellulitis Final Diagnosis Problems Medical Problems: (1) Cellulitis, leg Status: Acute Brief Hospital Course Allergies Allergies Coded Allergies Type Severity Reaction Last Updated Verified No Known Drug Allergies 08/05/13 No Vital Signs Vital Signs Date Time Temp Pulse Resp B/P (MAP) Pulse Ox O2 Delivery O2 Flow Rate FiO2 09/16/19 11:00 97.8 70 16 137/55 (82) 99 Room Air 97.8 Lab Results Laboratory Tests Test 09/14/19 16:15 09/15/19 13:20 Sodium Level 139 mmol/L (136-145) Potassium Level 4.5 mmol/L (3.5-5.1) Chloride Level 103 mmol/L (98-107) Carbon Dioxide Level 30 mmol/L (21-32) Anion Gap 6 (6-14) Blood Urea Nitrogen 14 mg/dL (8-26) Creatinine 0.9 mg/dL (0.7-1.3) Estimated GFR (Cockcroft-Gault) 83.7 BUN/Creatinine Ratio 16 (6-20) Glucose Level 90 mg/dL (70-99) Calcium Level 9.2 mg/dL (8.5-10.1) Total Bilirubin 0.3 mg/dL (0.2-1.0) Aspartate Amino Transf (AST/SGOT) 23 U/L (15-37) Alanine Aminotransferase (ALT/SGPT) 26 U/L (16-63) Alkaline Phosphatase 63 U/L (46-116) C-Reactive Protein, Quantitative 4.9 mg/L (0-3.3) Total Protein 6.9 g/dL (6.4-8.2) Albumin 3.6 g/dL (3.4-5.0) Albumin/Globulin Ratio 1.1 (1.0-1.7) White Blood Count 4.7 x10^3/uL (4.0-11.0) Red Blood Count 4.63 x10^6/uL (4.30-5.70) Hemoglobin 14.7 g/dL (13.0-17.5) Hematocrit 42.7 % (39.0-53.0) Mean Corpuscular Volume 92 fL (79-100) Mean Corpuscular Hemoglobin 32 pg (25-35) Mean Corpuscular Hemoglobin Concent 34 g/dL (31-37) Red Cell Distribution Width 13.2 % (11.5-14.5) Platelet Count 243 x10^3/uL (140-400) Neutrophils (%) (Auto) 55 % (31-73) Lymphocytes (%) (Auto) 30 % (24-48) Monocytes (%) (Auto) 11 % (0-9) Eosinophils (%) (Auto) 3 % (0-3) Basophils (%) (Auto) 1 % (0-3) Neutrophils # (Auto) 2.5 x10^3/uL (1.8-7.7) Lymphocytes # (Auto) 1.4 x10^3/uL (1.0-4.8) Monocytes # (Auto) 0.5 x10^3/uL (0.0-1.1) Eosinophils # (Auto) 0.1 x10^3/uL (0.0-0.7) Basophils # (Auto) 0.0 x10^3/uL (0.0-0.2) Brief Hospital Course Mr Quintero is a is a 69 yo M w/ PMHx pulmonary emboli and DVT left lower extremity, status post IVC filter about 4-5 years ago. He developed swelling in his lower extremities bilaterally, off and on, but mostly on the left worse about 4 weeks ago, he developed increased pain and redness left leg, seen in ED 08/25/2019 with venous Doppler study showed a non-occlusive thrombus in the left popliteal vein extending into the posterior tibial vein, sent home on clindamycin and followed up with his primary care provider 2 days prior to admit and was prescribed azithromycin, took 3 days, and returned to ED, admitted for persistent pain and redness failing outpatient treatment. 09/14: The left leg is a little less erythematous today. Discussed with ID. Started on cefazolin. Afebrile. Leg significantly improved. He notes to me that he has been putting hydrocortisone on it at home, thinking that would help with moisturizing. Has palpable pulses, some breakdown between the fourth and fifth toe. Pain is improved. After 3 days of IV antibiotics he has significant improvement, moisturized with Eucerin to extremity elevated. ID and vascular surgery consulted. Discharge home on Augmentin for 7 additional days. Problem list: Intractable pain PE, DVT Peripheral vascular disease Previous tobacco abuse Cellulitis, left lower extremity, failed outpatient antibiotics Chronic venous stasis Nonocclusive thrombus and the left popliteal vein extending into the posterior tibial vein at ultrasound 08/25/2019 Obesity Greater than 30 minutes spent on d/c home with self care Discharge Information Condition at Discharge: Improved Follow Up: Weeks (1) Disposition/Orders: D/C to Home Scheduled Amoxicillin/Potassium Clav (Augmentin 875-125 Tablet) 1 Each Tablet, 1 TAB PO BID for cellulitis for 10 Days, #20 Ref 0 Prescribed by: HAWA LOPES MD on 09/16/19 1256 Lactobacillus Rhamnosus Gg (Culturelle) 1 Each Cap.sprink, 1 CAP PO BID for Diarrhea for 10 Days, #20 Prescribed by: HAWA LOPES MD on 09/16/19 1256 Rivaroxaban (Xarelto) 20 Mg Tablet, 20 MG PO DAILY, (Reported) Entered as Reported by: VI ROBLES [facility] on 09/15/19 1239 Last Action: Converted on 09/16/19 1233 by HAWA LOPES MD Scheduled PRN Albuterol Sulfate (Proair Hfa Inhaler) 8.5 Gm Hfa.aer.ad, 1-2 PUFF INH PRN Q6HRS PRN for SHORTNESS OF BREATH, #1 Ref 1 Prescribed by: NEERU MON on 04/03/17 1516 Last Action: Continued on 09/16/19 1233 by HAWA LOPES MD Hydrocodone/Apap 5-325 ([place] 5-325 Tablet) 1 Each Tablet, 1-2 EACH PO PRN Q6HRS PRN for PAIN, #15 as needed for pain Prescribed by: CATHY SERRANO D.O. on 08/25/19 2034 Hydrocodone/Apap 5-325 ([place] 5-325 Tablet) 1 Each Tablet, 1 TAB PO PRN Q6HRS PRN for PAIN for 6 Days, #15 Prescribed by: HAWA LOPES MD on 09/16/19 1334 Discontinued Medications Azithromycin (Azithromycin Tablet) 250 Mg Tablet, 1 PKG PO UD, #6 Prescribed by: NEERU MON on 04/03/17 1516 Clindamycin Hcl (Clindamycin Hcl) 300 Mg Capsule, 1 CAP PO QID, #40 Prescribed by: CATHY SERRANO D.O. on 08/25/192033 Last Action: Converted on 09/14/191747 by NIAL CASTLE Prednisone (Prednisone) 50 Mg Tablet, 1 TAB PO DAILY, #5 Prescribed by: NEERU MON on 04/03/17 1516 Last Action: Converted on 09/14/191747 by NIAL CASTPARVIZ Warfarin Sodium (Warfarin Sodium) 10 Mg Tablet, 10 MG PO DAILY, (Reported) Discontinued Reason: DC Entered as Reported by: MIRA SOLIS on 09/03/13 0114 Last Action: Discontinued on 09/15/19 1239 by VI ROBLES Kellie Justicifation of Admission Dx: Justifications for Admission: Justification of Admission Dx: Yes Cellulitis: Cellulitis HAWA LOPES MD Sep 16, 2019 13:15
[2019-09-16] MEDS ORDERED: HYDR-3164 PO (13:32)
--- NOTE | 2019-09-16 15:57 | PDOC2 ---
CONSULT Date of Consult Date of Consult DATE: 09/16/19 TIME: 15:34 Reason for Consult Reason for Consult: Left lower leg cellulitis with hx/o DVT Referring Physician Referring Physician: Dr. Araujo Identification/Chief Complaint Chief Complaint Left leg pain and cellulitis Source Source: Patient History of Present Illness Reason for Visit: This is a 69-year-old gentleman who has a history of pulmonary emboli and DVT left lower extremity, status post IVC filter about 4-5 years ago. He takes Xarelto daily. He reportedly developed swelling in his lower extremities bilaterally, off and on, but mostly on the left. About 4 weeks ago, he developed increased pain and redness left leg. He was seen at the [facility] ER on 08/25/19. A venous Doppler study showed a non-occlusive thrombus in the left popliteal vein extending into the posterior tibial vein. He was released home on clindamycin. He followed up with his primary care provider a couple of days ago and was prescribed azithromycin for persistent symptoms. He took all but two tablets. He has now been admitted for persistent pain and redness, and is currently on IV antibiotics. He denies current fever and chills, denies CP and SOA. He denies N/V/D/C. He denies dysuria, hematuria, melena and hematochezia. He denies claudication pain and denies TIAs and CVA. His WBC is 4.7, Hg 14.7, HCT 42.7, Plt Ct 243, Creat 0.9. Family History Family History: Diabetes, Other (Noncontributory) Social History Quit Current Problem List Problem List Problems Medical Problems: (1) Cellulitis, leg Status: Acute Current Medications Current Medications Current Medications Clindamycin Phosphate 50 ml @ 100 mls/hr 1X ONCE IV Last administered on 09/14/19at 16:16; Start 09/14/19 at 16:00; Stop 09/14/19 at 16:29; Status DC Acetaminophen/ Hydrocodone Bitart (Lortab 5/325) 1 tab PRN Q6HRS PRN PO PAIN Last administered on 09/14/19at 19:37; Start 09/14/19 at 18:00; Stop 09/14/19 at 22:57; Status DC Clindamycin HCl (Cleocin) 300 mg QID PO Last administered on 09/15/19at 08:19; Start 09/14/19 at 21:00; Stop 09/15/19 at 12:09; Status DC Non-Formulary Medication (Prednisone ) 1 tab DAILY PO ; Start 09/15/19 at 09:00; Stop 09/14/19 at 18:01; Status DC Oxycodone/ Acetaminophen (Percocet 5/325) 1 tab PRN Q4HRS PRN PO MODERATE PAIN 4-6; Start 09/14/19 at 23:00 Oxycodone/ Acetaminophen (Percocet 5/325) 2 tab PRN Q4HRS PRN PO SEVERE PAIN 7- 10 Last administered on 09/16/19at 13:43; Start 09/14/19 at 23:00 Cefazolin Sodium (Ancef) 1 gm Q8HRS IVP Last administered on 09/16/19at 13:44; Start 09/15/19 at 14:00 Lactobacillus Rhamnosus (Culturelle) 1 cap BID PO Last administered on 09/16/19at 07:59; Start 09/15/19 at 21:00 Albuterol Sulfate (Ventolin Neb Soln) 2.5 mg PRN Q6HRS PRN INH SHORTNESS OF BREATH; Start 09/16/19 at 12:45 Rivaroxaban (Xarelto) 20 mg DAILYWSUP PO ; Start 09/16/19 at 17:00 Multi-Ingredient Ointment (Hydrocerin Cream) 1 bharath PRN Q1HR PRN TP DRY SKIN / SCALING Last administered on 09/16/19at 13:44; Start 09/16/19 at 12:45 Amoxicillin/ Clavulanate Potassium (Augmentin 875/ 125mg) 1 tab BID PO Last administered on 09/16/19at 13:43; Start 09/16/19 at 13:00 Active Scripts Active [place] 5-325 Tablet (Acetaminophen/Hydrocodone Bitart) 1 Each Tablet 1 Tab PO PRN Q6HRS PRN 6 Days Culturelle (Lactobacillus Rhamnosus Gg) 1 Each Cap.sprink 1 Cap PO BID 10 Days Augmentin 875-125 Tablet (Amoxicillin/Potassium Clav) 1 Each Tablet 1 Tab PO BID 10 Days [place] 5-325 Tablet (Acetaminophen/Hydrocodone Bitart) 1 Each Tablet 1-2 Each PO PRN Q6HRS PRN as needed for pain Proair Hfa Inhaler (Albuterol Sulfate) 8.5 Gm Hfa.aer.ad 1-2 Puff INH PRN Q6HRS PRN Reported Xarelto (Rivaroxaban) 20 Mg Tablet 20 Mg PO DAILY Allergies Allergies: Coded Allergies: No Known Drug Allergies (Unverified , 08/05/13) ROS Review of System A 10 point review of systems is negative except for what is listed in the HPI Physical Exam Physical Exam VSS, NAD. General: Alert, Oriented X3, Cooperative, No acute distress HEENT: Atraumatic Lungs: Clear to auscultation, Normal air movement Heart: Regular rate, No murmurs, Other (He has no loud carotid bruits. 2+ carotid pulses, 2+ radial pulses, 2+ femoral pulses and 2+ DP pulses bilaterally.) Abdomen: Normal bowel sounds, Soft, No tenderness Extremities: No cyanosis, Normal pulses Neuro: Normal speech, Strength at 5/5 X4 ext, Other (Thread Pulling Machine Attendant strength strong and equal bilaterally. Smile is symetrical.) Psych/Mental Status: Mental status NL, Mood NL MUSCULOSKELETAL: Other (He has left lower extremity redness and some edema. He has darkening of his lower left leg consistant with venous stasis dermatitis.) Vitals VITALS Vital Signs Date Time Temp Pulse Resp B/P (MAP) Pulse Ox O2 Delivery O2 Flow Rate FiO2 09/16/19 13:43 Room Air 09/16/19 11:00 97.8 70 16 137/55 (82) 99 97.8 Labs Labs Laboratory Tests Test 09/14/19 16:15 09/15/19 13:20 Sodium Level 139 mmol/L (136-145) Potassium Level 4.5 mmol/L (3.5-5.1) Chloride Level 103 mmol/L (98-107) Carbon Dioxide Level 30 mmol/L (21-32) Anion Gap 6 (6-14) Blood Urea Nitrogen 14 mg/dL (8-26) Creatinine 0.9 mg/dL (0.7-1.3) Estimated GFR (Cockcroft-Gault) 83.7 BUN/Creatinine Ratio 16 (6-20) Glucose Level 90 mg/dL (70-99) Calcium Level 9.2 mg/dL (8.5-10.1) Total Bilirubin 0.3 mg/dL (0.2-1.0) Aspartate Amino Transf (AST/SGOT) 23 U/L (15-37) Alanine Aminotransferase (ALT/SGPT) 26 U/L (16-63) Alkaline Phosphatase 63 U/L (46-116) C-Reactive Protein, Quantitative 4.9 mg/L (0-3.3) Total Protein 6.9 g/dL (6.4-8.2) Albumin 3.6 g/dL (3.4-5.0) Albumin/Globulin Ratio 1.1 (1.0-1.7) White Blood Count 4.7 x10^3/uL (4.0-11.0) Red Blood Count 4.63 x10^6/uL (4.30-5.70) Hemoglobin 14.7 g/dL (13.0-17.5) Hematocrit 42.7 % (39.0-53.0) Mean Corpuscular Volume 92 fL (79-100) Mean Corpuscular Hemoglobin 32 pg (25-35) Mean Corpuscular Hemoglobin Concent 34 g/dL (31-37) Red Cell Distribution Width 13.2 % (11.5-14.5) Platelet Count 243 x10^3/uL (140-400) Neutrophils (%) (Auto) 55 % (31-73) Lymphocytes (%) (Auto) 30 % (24-48) Monocytes (%) (Auto) 11 % (0-9) Eosinophils (%) (Auto) 3 % (0-3) Basophils (%) (Auto) 1 % (0-3) Neutrophils # (Auto) 2.5 x10^3/uL (1.8-7.7) Lymphocytes # (Auto) 1.4 x10^3/uL (1.0-4.8) Monocytes # (Auto) 0.5 x10^3/uL (0.0-1.1) Eosinophils # (Auto) 0.1 x10^3/uL (0.0-0.7) Basophils # (Auto) 0.0 x10^3/uL (0.0-0.2) Assessment/Plan Assessment/Plan 69 year old gentleman with a past medical history of DVT with PE, IVC filter placement and anticoagulated with Xarelto. He is currently being treated with I V antibiotics for left lower leg cellulitis. He had a venous doppler showing PT and popliteal vein non-occlusive thrombus.He was seen and examined by Dr. Guillory today as well, and she concurs with the plan of care. Plan: No vascular surgery intervention is needed. Continue IV antibiotics per Medicine or ID. Continue Xarelto or other anticoagulant. Since he is maximally protected from additional pulmonary embolism with an IVC filter and is anticoagulated to help protect against additional DVT, Vascular Surgery will sign off. HERNANDO CHACKO ROLL UP HELPER Sep 16, 2019 15:57
[2019-09-16] MEDS ORDERED: RIVAROXABAN 10 MG TABLET. PO SCH (17:00)
== END 2019-09-16 15:47 | disposition home or self-care (01) | DRG 603 ==
LOC: ER 14:08 → 4 NORTH 16:57
PROVIDERS: ADMIT Internal Medicine; ATTEND Internal Medicine
DX: L03.115 Cellulitis of right lower limb (principal); L03.116 Cellulitis of left lower limb; E66.9 Obesity, unspecified; I73.9 Peripheral vascular disease, unspecified; I87.8 Other specified disorders of veins; Z79.01 Long term (current) use of anticoagulants; Z83.3 Family history of diabetes mellitus; Z86.711 Personal history of pulmonary embolism; Z86.718 Personal history of other venous thrombosis and embolism; Z87.891 Personal history of nicotine dependence; Z95.828 Presence of other vascular implants and grafts; Z68.30 Body mass index [BMI] 30.0-30.9, adult
CPT/HCPCS: 36415; 80053; 85025; 86140; J0690; J3490; G0378

== ENCOUNTER → 2019-11-22 | Outpatient (CLI) | payer MEDICARE, OTHER ==
[~2019-11-22] MED LIST changes: +AMOX1TAB61 PO; +LACT1CAP19 PO; +RIVA20TA2 PO
--- NOTE | 2019-11-22 11:40 | RAD ---
MR#: [id number] Date of Study: 11/22/2019 Ordering Physician: STEFFANIE ROLON, Referring Physician: STEFFANIE ROLON, Tech: Kandice Granados RDMS, RVT, RTR APPROVED REPORT Patient Location : OUT-PATIENT Indications Lower Extremity Edema : Bilateral Findings Grayscale images of the bilateral lower extremity saphenofemoral junctions are grossly unremarkable. The right great saphenous vein measures 4.7 mm and has no significant reflux. The left great saphen ous vein measures 4.9 mm and has no significant reflux. Bilateral lesser saphenous veins did not show any evidence of reflux. Critical Notification Critical Value: No <Conclusion> 1. Negative for reflux in the bilateral greater and lesser saphenous veins Signed by : Mikhail Baker, Electronically Approved : 11/22/2019 11:40:13
--- NOTE | 2019-11-22 15:46 | CARD ---
MR#: [id number] Date of Study: 11/22/2019 Ordering Physician: STEFFANIE ROLON, Referring Physician: STEFFANIE ROLON Tech: Anna Brady RDCS APPROVED REPORT EXAM: Two-dimensional and M-mode echocardiogram with Doppler and color Doppler. Other Information Quality : Good INDICATION Peripheral Edema 2D DIMENSIONS RVDd3.1 (2.9-3.5cm)Left Atrium(2D)3.3 (1.6-4.0cm) IVSd0.7 (0.7-1.1cm)Aortic Root(2D)2.7 (2.0-3.7cm) LVDd5.6 (3.9-5.9cm)LVOT Diameter2.5 (1.8-2.4cm) PWd0.9 (0.7-1.1cm)FS (%) 30.0 % LVEF(%)60.0 (>50%) Aortic Valve AO Peak GR.7.0mmHgAO Mean GR.4mmHg SHAVON (VMAX)3.19hy2MWE (VTI)4.50cm2 Tricuspid Valve TR P. [id number]/sRAP [id number] TR Peak Gr.[id number] LEFT VENTRICLE The left ventricle is normal size. There is normal left ventricular wall thickness. The left ventricu lar systolic function is normal and the ejection fraction is within normal range. The Ejection Fracti on is 55-60%. There is normal LV segmental wall motion. Transmitral Doppler flow pattern is Grade I-a bnormal relaxation pattern. RIGHT VENTRICLE The right ventricle is normal size. The right ventricular systolic function is normal. ATRIA The left atrium size is normal. The right atrium size is normal. The interatrial septum is intact wit h no evidence for an atrial septal defect or patent foramen ovale as noted on 2-D or Doppler imaging. AORTIC VALVE The aortic valve is calcified but opens well. Doppler and Color Flow revealed no significant aortic r egurgitation. There is no significant aortic valvular stenosis. MITRAL VALVE The mitral valve is calcified but opens well. Mitral annular calcification is mild. There is no evide nce of mitral valve prolapse. There is no mitral valve stenosis. Doppler and Color-flow revealed trac e mitral regurgitation. TRICUSPID VALVE The tricuspid valve is normal in structure and function. Doppler and Color Flow revealed physiologica l tricuspid regurgitation. The PA pressure was estimated at 28 mmHg. There is no tricuspid valve sten osis. PULMONIC VALVE The pulmonic valve is not well visualized. Doppler and Color Flow revealed trace pulmonic valvular re gurgitation. There is no pulmonic valvular stenosis. GREAT VESSELS The aortic root is normal in size. The ascending aorta is normal in size. The IVC is normal in size a nd collapses >50% with inspiration. PERICARDIAL EFFUSION There is no evidence of significant pericardial effusion. Critical Notification Critical Value: No <Conclusion> The left ventricular systolic function is normal and the ejection fraction is within normal range. Th e Ejection Fraction is 55-60%. There is normal LV segmental wall motion. Signed by : Mikhail Baker, Electronically Approved : 11/22/2019 15:46:44
== END | disposition home or self-care (01) ==
LOC: US 08:18
PROVIDERS: ATTEND Internal Medicine Cardiovascular Disease
DX: I08.3 Combined rheumatic disorders of mitral, aortic and tricuspid valves (principal); R60.0 Localized edema
CPT/HCPCS: 93306; 93970